=== PATIENT | female | born 1995 | race Caucasian/White ===

== ENCOUNTER 2020-09-16 21:16 | Emergency (ER) | payer SELFPAY ==
[~2020-09-16] VITALS: Ht 162.6 cm; Wt 86.0 kg
[2020-09-16] MEDS ORDERED: MORPHINE SULFATE 2 MG/ML CPJ (NOT FOR IM USE) IV ONE (23:30)
[2020-09-17] MEDS ORDERED: IBUP-2029 MT (00:30)
[2020-09-17] MEDS ORDERED: KETOROLAC 15MG/ML VIAL IV ONE (01:00)
[2020-09-17 01:25] VITALS: BP 120/66
== END 2020-09-17 01:43 | disposition home or self-care (01) ==
LOC: ER 21:16
DX: M25.572 Pain in left ankle and joints of left foot (principal); Z91.81 History of falling
CPT/HCPCS: 73610; 73630; 96374; 96375; 99284; J1885; J2270